=== PATIENT | female | born 2000 | race Caucasian/White ===

== ENCOUNTER → 2024-02-08 12:43 | Outpatient (REF) | payer BC, SELFPAY ==
[2024-02-08 14:01] LABS: % Basophils 0.5 % (0-2); % Eosinophils 1.6 % (0-6); % Immature Granulocytes 0.4 % (0-0.5); % Lymphocytes 33.2 % (20.5-51.1); % Monocytes 7.7 % (1.7-9.3); % Neutrophils 56.6 % (42.2-75.2); Absolute Eosinophils 0.1 10^3/uL (0-0.7); Absolute Lymphocytes 2.8 10^3/uL (1.2-3.4); Absolute Monocytes 0.7 10^3/uL (0.1-0.6); Absolute Neutrophils 4.8 10^3/uL (1.4-6.5); Hematocrit 40.4 % (37.0-47.0); Hemoglobin 14.1 g/dL (12.0-16.0); Mean Corp Hgb Conc. 34.9 g/dL (33.0-37.0); Mean Corpuscular Hgb 28.8 pg (27.0-31.0); Mean Corpuscular Volume 82.4 fL (81.0-99.0); Mean Platelet Volume 10.6 fL (7.4-10.4); Nucleated Red Blood Cells % 0 %; Platelet Count 199 10^3/uL (130-400); Red Cell Dist. Width 12.2 % (11.5-14.5); White Blood Cell Count 8.6 10^3/uL (4.8-10.8)
[2024-02-08 14:34] LABS: ALT (SGPT) 18 U/L (0-35); AST (SGOT) 25 U/L (14-36); Alkaline Phosphatase 56 U/L (38-126); Blood Urea Nitrogen 9 mg/dl (7-17); Calcium 10.3 mg/dl (8.4-10.2); Carbon Dioxide 21 mmol/L (22-30); Chloride 104 mmol/L (98-107); Glucose 91 mg/dl (70-99); Potassium 4.5 mmol/L (3.5-5.1); Sodium 139 mmol/L (135-145); Total Bilirubin 0.5 mg/dl (0.2-1.3); Total Protein 8.3 g/dl (6.3-8.2); eGFR > 60.00
[2024-02-08 15:01] LABS: TSH 1.55 uIU/ml (0.47-4.68)
== END ==
LOC: REG 12:43
PROVIDERS: ATTENDING PHYSICIAN Nurse Practitioner
DX: R11.2 Nausea with vomiting, unspecified (principal)
CPT/HCPCS: 36415; 80053; 84443; 85025

== ENCOUNTER → 2024-02-10 14:29 | Outpatient (REF) | payer BC, SELFPAY | LOC: CPAP 14:29 | PROVIDERS: ATTENDING PHYSICIAN Obstetrics & Gynecology Gynecology | DX: Z11.3 Encounter for screening for infections with a predominantly sexual mode of transmission (principal); Z01.419 Encounter for gynecological examination (general) (routine) without abnormal findings | CPT/HCPCS: 87491; 87591 ==

== ENCOUNTER 2024-03-13 12:19 | Emergency (ER) | payer SELFPAY ==
[2024-03-13 12:23] VITALS: BP 155/96
--- NOTE | 2024-03-13 13:15 | ED.GENMED ---
History of Present Illness
General
Chief Complaint: Musculo-Skeletal Complaint
Source: patient
Time Seen by Provider: 03/13/24 12:27
Travel History
Have you had any contact with someone who has COVID-19?: No
Do you have any symptoms of coronavirus? Fever > 100 degrees, chills, cough, shortness of breath, sore throat, loss of taste or smell, muscle aches, or headache?: No
History of Present Illness
History of Present Illness:
23-year-old female presenting the emergency department for evaluation after injuring her left ankle while at work today stating that she inverted the ankle and now is having pain mainly along the lateral aspect. Pain worsens with ambulation.
Denies any previous history of injury or surgery to the affected left ankle.
Past History
Past History
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
ED Past Surgical History: Orthopedic
Social History
Tobacco: Non-smoker
Alcohol: Occasional
Drug: None
Personal: Single
Living: with family
Review of Systems
Review of Systems
All Other Systems: ROS reviewed and negative except as documented in HPI and ROS
Phy Exam
Physical Exam
Physical Exam:
GENERAL: Alert , in no apparent distress
EYE: conjunctiva clear
Head: Normocephalic atraumatic
NECK: Supple,
ENT: mmm.
LUNGS: no acute respiratory distress
NEUROLOGICAL: Alert and oriented
SKIN: Warm and dry, skin intact.
MUSCULOSKELETAL: Left ankle with some mild soft tissue swelling just inferior to the lateral malleolus. Mild tenderness over this area. No breaks in the skin. No proximal tib-fib tenderness, no tenderness at base of the fifth metatarsal, no
laxity of the calcaneal tendon. Easily palpable pedal and tibial pulses
PSYCH: Normal and appropriate interaction.
Scores
Heart Failure Risk
Heart Failure Risk Score: Not Applicable
Heart Score for Chest Pain Patients
STEMI patient?: Not applicable
Withdrawal Assessment of Alcohol
Withdrawal Assessment Completed?: Not applicable
Course
Orders/Labs/Results
Orders:
Orders
03/13/24 12:28
CR Ankle - Left Min 3 Views Urgent
Comment:
Reason For Exam: pain, injury
03/13/24 13:16
Air Splint Left-Treatment ONCE
Crutches-Treatment ONCE
Vital Signs
Initial and Last Documented VS:
Initial Vital Signs
Temp Pulse Resp BP Pulse Ox
98.2 F 80 18 155/96 97
03/13/24 12:23 03/13/24 12:23 03/13/24 12:23 03/13/24 12:23 03/13/24 12:23
Last Documented Vital Signs
Temp Pulse Resp BP Pulse Ox
98.2 F 80 18 155/96 97
03/13/24 12:23 03/13/24 12:23 03/13/24 12:23 03/13/24 12:23 03/13/24 12:23
MDM/Problems Addressed
Differential Diagnosis Includes:
Contusion, sprain, fracture
MDM/Problems Addressed:
23-year-old female present emergency department for evaluation of left ankle injury while at work. Patient off exam I suspect a sprain to be most likely. X-ray was ordered from triage. Patient declining anything for pain.
*Radiology
Radiology exam reviewed: preliminary read by ED provider (No acute fracture)
*Pulse Oximetry
Patient hypoxic: no
*Critical Care Note
Total Time (30-74mins, 75-104mins- exclusive of procedures): Not Applicable
Comment
Comment:
X-ray negative for fracture. Will treat with air splint and crutches. NSAIDs/Tylenol, RICE recommendations discussed. Stable for discharge
ED Attending Note
-
Portions of this chart may have been created with voice recognition software.� Occasional wrong word or��sound alike� substitutions may have occurred due to the inherent limitations of voice recognition software.
Discharge Plan
Departure
Patient Disposition: Home (Routine Discharge)
Date of Disposition: 03/13/24
Time of Disposition: 13:15
Patient with high blood pressure during this ER visit?: Yes
Discharge Problem:
Left ankle sprain
Instructions: Sprain (DC)
Prescriptions:
No Action
adalimumab [Humira] 40 MG/0.8 ML syringe kit
40 mg SC
Patient Comments:
every 2 weeks
methotrexate sodium (PF) 25 MG/ML solution
25 mg IJ WEEKLY
Referrals:
Lanette Lainez CRNP [Family Provider] -
Interventions
Interventions:
*Risk Screen - Suicide Last Done: 03/13/24 12:23
*General Assessment Last Done: 03/13/24 12:23
*Neglect/Abuse Screening Last Done: 03/13/24 12:23
ED- Fall Risk Assessment Last Done: 03/13/24 13:10
*ED COVID-19 Vaccine History Last Done: 03/13/24 12:23
*Nursing Disposition Last Done: 03/13/24 13:43
ED-Musculoskeletal Assessment Last Done: 03/13/24 13:06
Discharge Date and Time
Discharge Date/Time: 03/13/24 13:44
Print Language: YAKUT
== END 2024-03-13 13:44 | disposition home or self-care (01) ==
LOC: EMR 12:19
PROVIDERS: EMERGENCY PHYSICIAN Emergency Medicine; FAMILY PHYSICIAN Nurse Practitioner Family
DX: S93.402A Sprain of unspecified ligament of left ankle, initial encounter (principal); X50.1XXA Overexertion from prolonged static or awkward postures, initial encounter; R03.0 Elevated blood-pressure reading, without diagnosis of hypertension; Y99.0 Civilian activity done for income or pay
CPT/HCPCS: 99283; 73610

== ENCOUNTER → 2024-03-29 16:26 | Outpatient (REF) | payer BC, SELFPAY | LOC: CLAB 16:26 | PROVIDERS: ATTENDING PHYSICIAN Obstetrics & Gynecology Gynecology | DX: N87.9 Dysplasia of cervix uteri, unspecified (principal) | CPT/HCPCS: 88305 ==

== ENCOUNTER 2024-04-16 18:05 | Emergency (ER) | payer BC, SELFPAY ==
[2024-04-16 18:17] VITALS: BP 153/95
[2024-04-16 18:46] VITALS: BMI 36.4
--- NOTE | 2024-04-16 18:59 | ED.GENMED ---
History of Present Illness
General
Chief Complaint: Fever
Source: patient
Exam Limitations: none
Time Seen by Provider: 04/16/24 18:38
History of Present Illness
History of Present Illness:
This is a 23 year old female that comes in with c/o fever, vomiting, sore throat. States that she started with vomiting this morning. States that her Temp was 101 at home, her body aches, she has a sore throat and a headache. States that her abd is
sore and a headache is all over. Patient has not taken any Tylenol or Ibuprofen due to the vomiting. Denies any chills, chest pain, SOB, diarrhea, dizziness, urinary burning.
Past History
Past History
ED Past Medical History: Psychiatric (Anxiety, Depression) and Other (Juvenile Idiopathic arthritis on Humira, )
ED Past Surgical History: Orthopedic (Left knee surgery, Left hip surgery, ) and Other (Myringotomy X 3)
Social History
Tobacco: Non-smoker
Alcohol: Occasional
Drug: None
Personal: Single
Living: with family
Review of Systems
Review of Systems
All Other Systems: ROS reviewed and negative except as documented in HPI and ROS
Constitutional: Reports fever; Denies chills
EENT: Reports sore throat
Respiratory: Reports no symptoms; Denies cough or trouble breathing
Cardiac: Denies chest pain
ABD/GI: Reports abdominal pain (Sore), nausea and vomiting; Denies diarrhea
: Reports no symptoms; Denies dysuria, frequency or urgency
Musculoskeletal: Reports no symptoms
Skin: Reports no symptoms
Neurological: Reports headache; Denies dizzy
Psychiatric: Reports no symptoms
Phy Exam
General Physical Exam
General Presentation: no apparent distress
General age: appears stated age
General Skin: warm and dry
General Habitus: normal
General Mental: alert
General Hydration: appears well hydrated
ENT Exam
ENT Exam: TM's normal, pharynx normal, neck supple and other (Slight Posterior lymph adenopathy. )
Eye Exam
Eye Exam: EOMI
Cardiovascular Exam
Cardiovascular Exam: regular rate/rhythm, no edema, no murmur and normal peripheral pulses
Pulmonary Exam
Pulmonary Exam: lungs clear, no respiratory distress, no rales, chest non tender, no crackles, no rhonchi, no wheezing and no cough
Gastrointestinal Exam
Gastrointestinal Exam: normal bowel sounds, non tender, soft, no organomegaly, no pulsatile mass and non distended
Musculoskeletal Exam
Musculoskeletal Exam: full ROM and no edema
Skin Exam
Skin Exam: normal color, warm/dry, no rash and no petechia
Psychiatric Exam
Psychiatric Exam: normal mood/affect
Course
Orders/Labs/Results
Orders:
Orders
04/16/24 18:58
0.9% Sodium Chloride 1000 ml [Nss] 1,000 ml IV BOLUS
Acetaminophen 1000MG/100Ml [Ofirmev] 1,000 mg in 100 ml IV ONCE
Acetaminophen IV Indication:: ED Narcotic Naive Pt-ONCE
Ondansetron Injectable [Zofran] 4 mg IV NOW STA
Test Result ONCE
04/16/24 19:16
Influenza A+B Rapid Molecular Urgent
DEBORAH Source: Nasal Swab
Specimen Description:
Rapid Strep Group A Urgent
DEBORAH Source: Throat/Pharynx
Specimen Description:
Date Specimen was Collected: 04/16/24
Time Specimen was Collected: 19:11
04/16/24 19:17
COVID-19 Antigen Urgent
Source: Nasal Swab
Monotest Urgent
04/16/24 19:28
Complete Blood Count/With Diff Urgent
Comprehensive Metabolic Panel Urgent
HCG, Serum Qualitative Screen Urgent
Abnormal Lab Results
04/16/24 04/16/24
19:17 19:28
WBC 14.6 H 10^3/uL
(4.8-10.8)
MCV 80.4 L fL
(81.0-99.0)
MPV 11.0 H fL
(7.4-10.4)
Abs Immat Gran (auto) 0.1 H 10^3/uL
(0-0.05)
Absolute Neuts (auto) 12.4 H 10^3/uL
(1.4-6.5)
Absolute Monos (auto) 0.8 H 10^3/uL
(0.1-0.6)
Neutrophils % 84.9 H %
(42.2-75.2)
Lymphocytes % 8.8 L %
(20.5-51.1)
Glucose 100 H mg/dl
(70-99)
Monoscreen Positive A
(Negative)
04/16/24 19:28
04/16/24 19:28
Leukocytosis, Glucose nonfasting. Agu[place] positive. COVID and Influenza negative, Rapid strep negative.
Vital Signs
Initial and Last Documented VS:
Initial Vital Signs
Temp Pulse Resp BP Pulse Ox
101.2 F H 109 18 153/95 97
04/16/24 18:17 04/16/24 18:17 04/16/24 18:17 04/16/24 18:17 04/16/24 18:17
Last Documented Vital Signs
Temp Pulse Resp BP Pulse Ox
101.2 F H 109 18 153/95 97
04/16/24 18:17 04/16/24 18:17 04/16/24 18:17 04/16/24 18:17 04/16/24 18:17
MDM/Problems Addressed
Differential Diagnosis Includes:
COVID, Influenza, Viral syndrome
MDM/Problems Addressed:
This is a 23 year old female that comes in with multiple complaints.States that she started to day with vomiting, headache, body aches, and sore throat.
Will get labs, Give IV fluids and Zofran and Tylenol for her fever. COVID, Rapid strep, Influenza.
Back into see patient. Explained that she is positive for mono. Patient to increase her water intake to 8-8oz glasses daily. Rest. Follow up with the family doctor. Return with any concerns.
Chronic conditions affecting care:
NA
Acute Exacerbation and/or Progression of Chronic Illness:
NA
*Pulse Oximetry
Patient hypoxic: no
*EKG
Interpreted by ED Provider?: NA
Rate: EKG- N/A
*Clinical Pharmacologist Interpretation
Rate: Clinical Pharmacologist- N/A
*Critical Care Note
Total Time (30-74mins, 75-104mins- exclusive of procedures): Not Applicable
ED Attending Note
-
Portions of this chart may have been created with voice recognition software.� Occasional wrong word or��sound alike� substitutions may have occurred due to the inherent limitations of voice recognition software.
Discharge Plan
Departure
Patient Disposition: Home (Routine Discharge)
Date of Disposition: 04/16/24
Time of Disposition: 20:20
Patient with high blood pressure during this ER visit?: Yes
Condition: Good
Covid-19: Negative COVID-19
Discharge Problem:
Mononucleosis
Instructions: Mononucleosis, BLOOD PRESSURE
Prescriptions:
No Action
adalimumab [Humira] 40 MG/0.8 ML syringe kit
40 mg SC
Patient Comments:
every 2 weeks
methotrexate sodium (PF) 25 MG/ML solution
25 mg IJ WEEKLY
Referrals:
Lanette Lainez CRNP [Family Provider] - Follow up in 2-3 days
Activity Restrictions/Additional Instructions:
As discussed, you are negative for COVID, Influenza and rapid strep is negative. You are positive for Agu[place]. Please increase your water intake to 8-8oz glasses daily. Tylenol as needed for fever. Rest. Follow up with the family doctor in the next 2-3
days for recheck. No Contact sports or rough housing with friends or siblings. IF YOU HAVE ANY OTHER CONCERNS PLEASE RETURN TO THE EMERGENCY ROOM.
Interventions
Interventions:
*Risk Screen - Suicide Last Done: 04/16/24 18:17
*General Assessment Last Done: 04/16/24 18:17
*Neglect/Abuse Screening Last Done: 04/16/24 18:17
ED- Fall Risk Assessment Last Done: 04/16/24 18:44
MR-Jtglkw-Aluunlnufk Assessment Last Done: 04/16/24 18:44
ED- Neurological Assessment Last Done: 04/16/24 18:44
ED-Skin Assessment Last Done: 04/16/24 18:44
Discharge Date and Time
Print Language: [id number]
[2024-04-16 19:38] LABS: % Basophils 0.2 % (0-2); % Eosinophils 0.1 % (0-6); % Immature Granulocytes 0.3 % (0-0.5); % Lymphocytes 8.8 % (20.5-51.1); % Monocytes 5.7 % (1.7-9.3); % Neutrophils 84.9 % (42.2-75.2); Absolute Immature Granulocytes 0.1 10^3/uL (0-0.05); Absolute Lymphocytes 1.3 10^3/uL (1.2-3.4); Absolute Monocytes 0.8 10^3/uL (0.1-0.6); Absolute Neutrophils 12.4 10^3/uL (1.4-6.5); Hematocrit 37.3 % (37.0-47.0); Hemoglobin 13.4 g/dL (12.0-16.0); Mean Corp Hgb Conc. 35.9 g/dL (33.0-37.0); Mean Corpuscular Hgb 28.9 pg (27.0-31.0); Mean Corpuscular Volume 80.4 fL (81.0-99.0); Nucleated Red Blood Cells % 0 %; Platelet Count 168 10^3/uL (130-400); Red Blood Cell Count 4.64 10^6/uL (4.20-5.40); Red Cell Dist. Width 11.9 % (11.5-14.5); White Blood Cell Count 14.6 10^3/uL (4.8-10.8)
[2024-04-16 19:42] LABS: COVID-19 Antigen Negative (Negative)
[2024-04-16] MEDS: ZOFRAN 4 MG IV (19:45)
[2024-04-16] MEDS: NSS 1000 IV (19:45)
[2024-04-16 19:47] LABS: HCG, Serum Qualitative Screen Negative
[2024-04-16 19:48] LABS: Monotest Positive (Negative)
[2024-04-16 19:56] LABS: ALT (SGPT) 17 U/L (0-35); AST (SGOT) 25 U/L (14-36); Albumin 4.8 g/dl (3.5-5.0); Alkaline Phosphatase 74 U/L (38-126); Blood Urea Nitrogen 8 mg/dl (7-17); Calcium 9.6 mg/dl (8.4-10.2); Carbon Dioxide 23 mmol/L (22-30); Chloride 101 mmol/L (98-107); Estimated Creatinine Clearance > 125 ml/min; Glucose 100 mg/dl (70-99); Potassium 3.9 mmol/L (3.5-5.1); Sodium 135 mmol/L (135-145); Total Bilirubin 0.5 mg/dl (0.2-1.3); Total Protein 7.7 g/dl (6.3-8.2); eGFR > 60.00
[2024-04-16 20:00] VITALS: BP 147/82
[2024-04-16] MEDS: OFIRMEV 100 IV (20:00)
== END 2024-04-16 20:53 | disposition home or self-care (01) ==
LOC: EMR 18:05
PROVIDERS: Clinical Nurse Specialist Family Health; EMERGENCY PHYSICIAN Emergency Medicine; FAMILY PHYSICIAN Nurse Practitioner Family
DX: B27.90 Infectious mononucleosis, unspecified without complication (principal); R03.0 Elevated blood-pressure reading, without diagnosis of hypertension; Z11.52 Encounter for screening for COVID-19
CPT/HCPCS: 99284; 96374; 96375; 96361; 80053; 84703; 85025; 86308; 87070; 87502; 87811; 87880

== ENCOUNTER → 2024-10-05 12:59 | Outpatient (REF) | payer BC, SELFPAY | LOC: CPAP 12:59 | PROVIDERS: ATTENDING PHYSICIAN Obstetrics & Gynecology Gynecology | DX: N87.9 Dysplasia of cervix uteri, unspecified (principal) | CPT/HCPCS: 87624; 87625 ==

== ENCOUNTER → 2025-04-16 10:21 | Outpatient (REF) | payer BC, SELFPAY | LOC: CPAP 10:21 | PROVIDERS: ATTENDING PHYSICIAN Obstetrics & Gynecology Gynecology | DX: N87.9 Dysplasia of cervix uteri, unspecified (principal); Z01.419 Encounter for gynecological examination (general) (routine) without abnormal findings; Z11.3 Encounter for screening for infections with a predominantly sexual mode of transmission | CPT/HCPCS: 87491; 87591 ==

== ENCOUNTER → 2025-04-16 10:53 | Outpatient (REF) | payer BC, SELFPAY ==
[2025-04-16 11:40] LABS: Hematocrit 41.2 % (37.0-47.0); Hemoglobin 13.6 g/dL (12.0-16.0); Mean Corp Hgb Conc. 33.0 g/dL (33.0-37.0); Mean Corpuscular Volume 82.9 fL (81.0-99.0); Nucleated Red Blood Cells % 0 %; Platelet Count 227 10^3/uL (130-400); Red Cell Dist. Width 12.5 % (11.5-14.5)
[2025-04-16 12:05] LABS: ALT (SGPT) 15 U/L (0-35); AST (SGOT) 18 U/L (14-36); Albumin 4.9 g/dl (3.5-5.0); Alkaline Phosphatase 76 U/L (38-126); Blood Urea Nitrogen 10 mg/dl (7-17); Calcium 9.7 mg/dl (8.4-10.2); Carbon Dioxide 25 mmol/L (22-30); Chloride 104 mmol/L (98-107); Glucose 97 mg/dl (70-99); Potassium 4.5 mmol/L (3.5-5.1); Sodium 137 mmol/L (135-145); Total Protein 8.6 g/dl (6.3-8.2); eGFR > 60.00
[2025-04-16 12:07] LABS: C-Reactive Protein 21.00 mg/L (0.0-10.00)
== END ==
LOC: REG 10:53
PROVIDERS: ATTENDING PHYSICIAN Hospitalist; FAMILY PHYSICIAN Nurse Practitioner Family
DX: M08.00 Unspecified juvenile rheumatoid arthritis of unspecified site (principal); Z79.899 Other long term (current) drug therapy
CPT/HCPCS: 36415; 80053; 85025; 86140; 86480